=== PATIENT | male | born 2000 | race Hispanic/Latino ===

== ENCOUNTER 2025-06-21 19:32 | Emergency (ER) | payer OTHER ==
[~2025-06-21] VITALS: Ht 170.2 cm; Wt 78.2 kg
[2025-06-21 21:04] LABS: BASO # 0.0 10^3/uL (0.0-0.2); BASO % 0.2 % (0.0-1.0); EOS # 0.1 10^3/uL (0.0-0.5); EOS % 0.5 % (0.0-3.0); LYMPH # 3.4 10^3/uL (1.5-5.0); LYMPH % 20.5 % (24.0-44.0); MONO # 0.8 10^3/uL (0.0-0.8); MONO % 4.6 % (2.0-8.0); NEUTROPHILS # 12.4 10^3/uL (1.5-8.5); NEUTROPHILS % 73.8 % (36.0-66.0); PLATELET COUNT, AUTOMATED 295 10^3/uL (150-450)
[2025-06-21 21:25] LABS: ALT/SGPT 54 U/L (7.0-40); AST/SGOT 65 U/L (<34); CALCIUM LEVEL 8.8 MG/DL (8.5-10.1); CARBON DIOXIDE LEVEL 27 MMOL/L (20-31); CHLORIDE LEVEL 105 MMOL/L (98-107); CREATININE FOR GFR 0.90 MG/DL (0.70-1.30); GLOMERULAR FILTRATION RATE > 90.0 (>60); POTASSIUM SERUM 3.5 MMOL/L (3.5-5.1); SODIUM LEVEL 144 MMOL/L (136-145)
[2025-06-21 22:42] LABS: KETONE, URINE AUTO RFX NEGATIVE (NEGATIVE); LEUKOCYTE ESTERASE UR AUTO RFX NEGATIVE (NEGATIVE); MUCUS, URINE RFX SMALL (NEGATIVE); NITRITE, URINE AUTO RFX NEGATIVE (NEGATIVE); RBC, URINE AUTO RFX 1 /HPF (0-3); SQUAM EPITHELIAL CELL UR AURFX 0 /HPF (0-6); WBC, URINE AUTO RFX 0 /HPF (0-3)
[2025-06-22] MEDS: MAALOX 30 ML SUSP *UDC PO ONE (00:15)
[2025-06-22] MEDS: LIDOCAINE VISCOUS 2% SOLN 15 ML UDC PO ONE (00:15)
[2025-06-22] MEDS: FAMOTIDINE 20 MG/2 ML VIAL IVP ONE (00:16)
[2025-06-22] MEDS: HYOSCYAMINE SULFATE 0.125 MG SUBL TABLET PO ONE (00:16)
[2025-06-22] MEDS ORDERED: ISOVUE-370 76% 100 ML VIAL As Ordered ONE (00:17)
[2025-06-22] MEDS ORDERED: LEVS0.124 SL (03:51)
[2025-06-22 03:58] VITALS: BP 114/59; TEMP 97.8; O2SAT 99
== END 2025-06-22 04:04 | disposition home or self-care (01) ==
LOC: M ED 19:32
DX: K80.51 Calculus of bile duct without cholangitis or cholecystitis with obstruction (principal); K76.0 Fatty (change of) liver, not elsewhere classified; K56.41 Fecal impaction
CPT/HCPCS: 74177; 76705; 80048; 80076; 81001; 83690; 85025; 96374; 99285; J1308; Q9967